=== PATIENT | female | born 1960 | race Caucasian/White ===

== ENCOUNTER → 2016-08-08 | Outpatient (CLI) | payer BC, OTHER ==
[2016-08-08 10:41] LABS: EKG EKG PERFORMED
[2016-08-08 11:23] LABS: Partial Thromboplastin Time 25.3 sec (22.0-30.0); Prothrombin Time 10.3 sec (9.0-12.0)
[2016-08-08 11:26] LABS: Amorphous Sediment,Urine Rare /hpf; Appearance,Urine Cloudy (Clear); Bilirubin,Urine Negative (Negative); Glucose,Urine (UA) Negative (Negative); Ketones,Urine Negative (Negative); Leukocyte Esterase,Urine Moderate (Negative); Mucus,Urine Few /hpf; Nitrite,Urine Negative (Negative); PH, Urine 7.5 (5.0-8.0); Particle Count 16017; Protein,Urine Trace (Negative); RBC,Urine 3 /hpf (0-5); Specific Gravity,Urine 1.016 (1.001-1.035); Squamous Epithelial Cell,Urine 33 /hpf (0-4); UA Billing (MACRO vs. MICRO) MICRO; Urobilinogen,Urine <2.0 mg/dL (<2.0); WBC,Urine 11 /hpf (0-5)
[2016-08-08 11:33] LABS: Basophils % (A) 1 %; CH 29.4; CHCM 33.4; Eosinophils # (A) 0.1 k/uL (0-0.7); Eosinophils % (A) 1 %; HCT 41.9 % (34.0-46.0); HDW 2.73; HGB 14.3 gm/dL (11.4-16.0); Luc # (Auto) 0.15; Luc % (Auto) 3; Lymphocytes # (A) 2.2 k/uL (1.0-4.8); Lymphocytes % (A) 42 %; MCH 30.2 pg (25.0-35.0); MCHC 34.2 g/dL (31.0-37.0); MCV 88.3 fL (80.0-100.0); Monocytes # (A) 0.3 k/uL (0-1.0); Monocytes % (A) 6 %; Neutrophils # (A) 2.5 k/uL (1.3-7.7); Neutrophils % (A) 48 %; RBC 4.74 m/uL (3.80-5.40); RDW 12.9 % (11.5-15.5); WBC 5.2 k/uL (3.8-10.6); WBC (Perox) 5.54
[2016-08-08 11:35] LABS: ALT 35 U/L (9-52); AST 40 U/L (14-36); Alkaline Phosphatase 77 U/L (38-126); Anion Gap 12 mmol/L; Blood Urea Nitrogen 14 mg/dL (7-17); Calcium 10.1 mg/dL (8.4-10.2); Carbon Dioxide 24 mmol/L (22-30); Chloride 105 mmol/L (98-107); Glucose 87 mg/dL (74-99); Non-African American GFR(MDRD) >60 (>60 ml/min/1.73 sqM); Sodium 141 mmol/L (137-145); Total Bilirubin 0.9 mg/dL (0.2-1.3); Total Protein 8.4 g/dL (6.3-8.2)
[2016-08-08 11:37] LABS: Potassium 5.3 mmol/L (3.5-5.1)
== END | disposition home or self-care (01) ==
LOC: LABPAT 10:17
PROVIDERS: ATTEND Orthopaedic Surgery Sports Medicine
DX: Z01.812 Encounter for preprocedural laboratory examination (principal); Z01.810 Encounter for preprocedural cardiovascular examination
CPT/HCPCS: 80053; 81001; 85025; 85610; 85730; 87070; 93005

== ENCOUNTER 2016-08-23 10:02 | Inpatient (IN) | payer BC, OTHER ==
[2016-08-14 10:36] VITALS: BMI 29.5
[2016-09-13] MEDS ORDERED: ceFAZolin 2 GM in SODIUM CHLORIDE 0.9% 100 ML IVPB ONE (05:00)
[2016-09-13] MEDS ORDERED: ONDANSETRON 4 MG/2 ML VIAL IVP ONE ×3 (05:00→06:07)
[2016-09-13] MEDS ORDERED: TRANEXAMIC ACID 1,000 MG in SODIUM CHLORIDE 0.9% 100 ML IVPB ONE ×4 (05:00)
[2016-09-13] MEDS ORDERED: ACETAMINOPHEN TAB 500 MG TAB PO ONE (05:00)
[2016-09-13] MEDS ORDERED: MELOXICAM 7.5 MG TAB PO ONE (05:00)
[2016-09-13] MEDS ORDERED: DEXAMETHASONE SOD PHOSPHATE 10 MG/ML 1 ML VIAL IV ONE ×2 (06:07)
[2016-09-13] MEDS ORDERED: LACTATED RINGERS 1,000 ML IV SCH ×2 (06:07)
[2016-09-13] MEDS ORDERED: MIDAZOLAM 2 MG/2 ML VIAL IV PRN (06:07)
[2016-09-13] MEDS ORDERED: HYDROmorphone 1 MG/ML 1 ML SYRINGE IVP PRN ×5 (06:07→15:19)
[2016-09-13] MEDS ORDERED: LIDOCAINE 1% 20 ML VIAL (10MG/ML) FOR IV START INTRADERMA ONE (13:19)
[2016-09-13] MEDS ORDERED: fentaNYL (PF) 50 MCG/ML 2 ML AMP ONE (14:49)
[2016-09-13] MEDS ORDERED: SODIUM CHLORIDE 0.9% 100 ML BAG ONE (14:49)
[2016-09-13] MEDS ORDERED: MORPHINE SULFATE (PF) 0.3 MG/0.3 ML SYR ONE (14:49)
[2016-09-13] MEDS ORDERED: PROPOFOL 10 MG/ML 20 ML VIAL IV ONE (14:49)
[2016-09-13] MEDS ORDERED: MIDAZOLAM 2 MG/2 ML VIAL ONE (14:49)
[2016-09-13] MEDS ORDERED: TRANEXAMIC ACID 1,000 MG/10 ML VIAL ONE (14:49)
[2016-09-13] MEDS ORDERED: NALOXONE 0.4 MG/ML 1 ML VIAL IV PRN ×2 (15:19→15:23)
[2016-09-13] MEDS ORDERED: Acetaminophen-Codeine 300-30mg TAB PO PRN (15:19)
[2016-09-13] MEDS ORDERED: BISACODYL 10 MG SUPP RECTAL PRN (15:19)
[2016-09-13] MEDS ORDERED: hydrOXYzine PAMOATE 25 MG CAP PO PRN (15:19)
[2016-09-13] MEDS ORDERED: traMADol 50 MG TAB PO PRN (15:19)
[2016-09-13] MEDS ORDERED: ACETAMINOPHEN TAB 325 MG TAB PO PRN (15:19)
[2016-09-13] MEDS ORDERED: DIAZEPAM 5 MG TAB PO PRN (15:19)
[2016-09-13] MEDS ORDERED: MAGNESIUM HYDROXIDE 2,400 MG/10 ML CUP PO PRN (15:19)
[2016-09-13] MEDS ORDERED: NA PHOS,M-B/NA PHOS,DI-BA 133 ML ENEMA RECTAL PRN (15:19)
[2016-09-13] MEDS ORDERED: NALBUPHINE 10 MG/ML AMPUL IV PRN (15:23)
[2016-09-13] MEDS ORDERED: diphenhydrAMINE 50 MG/ML 1 ML VIAL IVP PRN (15:23)
[2016-09-13] MEDS ORDERED: MORPHINE SULFATE 4 MG/ML SYRINGE IVP PRN (15:23)
[2016-09-13] MEDS ORDERED: ceFAZolin 3,000 MG in SODIUM CHLORIDE 0.9% IRRIGATIO 3,000 ML IRRIGATION ONE (15:25)
[2016-09-13] MEDS: ROPIVACAINE 246.25 MG, EPINEPHrine 0.5 MG, KETOROLAC 30 MG, cloNIDine HCL/PF 80 MCG, WA... MISCELLANE ONE ×10 (15:37→16:09)
[2016-09-13] MEDS ORDERED: LACTATED RINGERS 1,000 ML IV ONE (15:38)
--- NOTE | 2016-09-13 18:09 | XR ---
EXAMINATION TYPE: XR KNEE LIMITED LT 2V DATE OF EXAM: 09/13/2016 5:29 PM COMPARISON: NONE HISTORY: Postoperative TECHNIQUE: 2 views FINDINGS: The left TKR appears anatomic in positioning alignment. Postsurgical changes are appreciate d within the soft tissues. The bones and joints and soft tissues are otherwise unremarkable. IMPRESSION: Postoperative examination.
[2016-09-13] MEDS: LACTATED RINGERS 1,000 ML IV SCH ×2 (18:17→23:17)
[2016-09-13] MEDS: ONDANSETRON 4 MG/2 ML VIAL IVP PRN (18:17)
[2016-09-13] MEDS: SENNOSIDES-DOCUSATE SODIUM 1 EACH TAB PO SCH (19:59)
[2016-09-13] MEDS: ASPIRIN 325 MG TAB PO SCH (19:59)
[2016-09-13] MEDS: METOCLOPRAMIDE 5 MG/ML 2 ML VIAL IVP PRN (20:01)
[2016-09-13] MEDS ORDERED: TEMAZEPAM 15 MG CAP PO PRN (21:00)
--- NOTE | 2016-09-13 23:01 | OP ---
DATE OF SERVICE: 09/13/2016 SURGEON: LUIS PATTON MD PARKING ENFORCER: Ross MEDINA PREOPERATIVE DIAGNOSIS: Left knee osteoarthrosis. POSTOPERATIVE DIAGNOSIS: Left knee osteoarthrosis. OPERATION: Left total knee arthroplasty. ANESTHESIA: Spinal with sedation. ESTIMATED BLOOD LOSS: 100 mL TOURNIQUET TIME: 45 minutes @ 250 mmHg. SPECIMENS REMOVED: COMPLICATIONS: None apparent. DRAINS: None. DISPOSITION: Post-Anesthesia Care Unit. OPERATIVE FINDINGS: INDICATIONS: Rocio is a 55-year-old female with long-standing history of left knee pain. History and physical examination were consistent with advanced left knee osteoarthrosis. She has been through significant non-operative management up to this point. Further treatment options were discussed, and she decided to go forward with left total knee arthroplasty. The risks of the procedure were discussed with her in detail. These risks include but are not limited to risk of infection, nerve damage, bleeding, pain, and a risk of deep vein thrombosis which could lead to fatal pulmonary embolism. There is also a risk of loosening of the implant, which could require revision operation. The patient understands these risks. All of her questions were answered to her satisfaction. Appropriate informed consent was obtained. DESCRIPTION OF PROCEDURE: Patient was identified in the preoperative holding area. Surgical site was marked by both the patient and myself. She was given 2 grams of Ancef IV for prophylactic purposes. She was then transferred to the operative suite, where she was placed supine on the operating room table. Spinal anesthetic was administered and dosed per the anesthesia department without apparent complication. Examination under anesthesia was then performed. The patient had full extension. She had 110 degrees of flexion. The medial collateral ligament, lateral collateral ligament and posterior cruciate ligaments were stable. Tourniquet was then placed high on the left upper thigh, well padded in preparation for surgery. Patient's left lower extremity then prepped and draped in the usual sterile fashion. Standard surgical pause was then undertaken to ensure that we were operating on the correct site and that appropriate preoperative antibiotics had been given. All staff in the room were in agreement and we proceeded. The outlines of the patella were marked with a surgical pen. A planned 12 cm vertical incision centered over the patella was marked with a surgical pen. The leg was then exsanguinated with an Esmarch dressing. The knee was then flexed and the tourniquet was inflated to 250 mmHg. The total tourniquet time for the procedure was 45 minutes. Incision was then made with a 10 blade scalpel. Dissection was carried down sharply to the overlying fascia. Great care was taken to minimize the skin flaps. The knee was then exposed using a standard medial parapatellar approach. A small cuff of quadriceps tendon was left for suturing. She was in a mild amount of varus preoperatively. A standard medial release was then made. Superficial medial collateral ligament was dissected off the bone around to the posterior aspect of the proximal tibia. The medial meniscus was then excised as well. The lateral meniscus was also released anteriorly. The leg was then externally rotated. The patella was everted and the knee was flexed. The retractors were then placed to protect the collateral ligaments. I then proceeded to remove the infrapatellar fat pad. This was excised sharply tangentially with the fibers of the patellar tendon. I then proceeded to remove the peripheral osteophytes. This was done with a rongeur. I then proceeded with distal femoral resection. She did have near-full extension. A planned 9 mm resection was then done. The femoral canal was then entered in the midline of the femur approximately 10 mm anterior to the origin of the posterior cruciate ligament. The bertha was then advanced down the center of the femur and placed intramedullary. Based on preoperative radiographs, the angle between the anatomic and mechanical axis of the femur was approximately 4 to 5 degrees. The valgus angle of the disc femoral cutting guide was then set at 4 degrees for the left knee. The distal femoral cutting guide was then advanced over the intramedullary bertha. This was seated firmly against the femur. I then, as mentioned, planned to take 9 mm off the distal femur. The cutting block was then secured onto the femur with pins. The jig was then removed and the distal femoral cut was made through the slot of the block. The pins were then removed and the distal femoral cutting block was removed. The accuracy of the distal femoral cuts was checked with 2 flat bars. I then proceeded with femoral sizing. The posterior referencing sizing guide was held firmly against the resected distal surface of the femur. The posterior condyles were resting on the posterior plane of the guide. The sizing stylus was then placed onto the anterior femur. This was measured as a size 7. I then assessed for femoral rotation. The plan was for 3 degrees of external rotation. Three degrees of external rotation was placed onto the jig. These holes were then marked. I then confirmed the rotation by 3 separate methods. This was done using the epicondylar axis as well as Whitesides line and posterior referencing. It was deemed that the external rotation was proper. I then went forward with placing the femoral cutting block. This was placed over the previously placed pinholes. The rajani wing was then placed onto the anterior slots to ensure that we would not notch the anterior femur with the anterior femoral cut. I then proceeded with the anterior femoral cut. This was flush with the anterior cortex of the femur. Posterior cuts were then made followed by the anterior chamfer cut and then the posterior chamfer cut. The cutting block was then removed. Throughout the resection, the collateral ligaments were protected with retractors. I then placed a trial 7 femur. It fit very nice medial to lateral and fit flush with the distal end of the femur. The drill holes were then made. I then proceeded with the tibial cut. I planned for a cruciate-retaining knee. The guide was placed and set for varus, valgus and for slope. The height was set for approximately 2 mm resection from the medial tibial plateau, which was the lower side. I was happy with the alignment and the amount of resection. The cutting block was then pinned to the proximal tibia. The alignment bertha was removed and the proximal tibia was resected with the reciprocating saw. Again this was done with retractors protecting the collateral ligaments as well as the posterior cruciate ligament. I then proceeded to evaluate the flexion and extension gaps. A 10 mm block was placed. The flexion and extension gaps were equal. I then proceeded with resection of the posterior osteophytes. She had very minimal posterior osteophytes. This was done using curved osteotome. This resected the posterior osteophytes and posterior capsule stripping was also done off the posterior aspect of the femur at this time. The osteophytes were then removed. I then proceeded with resection of the patella. The thickness of the patella was measured using the caliper. Thickness was 22 mm. The thickness of the anticipated patellar dome was taken into account. Resection was then performed and confirmed to be equal in 4 quadrants using a caliper. Approximately 14 mm of bone remained after the resection. A 32 x 8.5 mm standard patellar trial was then placed. The holes were drilled and the trial was then placed. I then proceeded with sizing the tibial plate. A size F tibial plate fit very nicely. I then placed a trial femur, tibial tray and the patellar button. A 10 mm trial tibial insert was also placed. The components fit very nicely. She had full flexion and extension. The extension and flexion gaps were equal and stable to both varus and valgus stress. The patella tracked appropriately. Tibial tray rotation was marked with a Bovie. This was externally rotated properly. I then proceeded with tibial preparation. I first drilled the femoral holes and removed the femoral component. The tibial tray was then set for proper external rotation as well as mediolateral placement onto the tibia. It was then pinned into place. I then proceeded with punching the keel. I then decided to proceed with cementing of all of our components. The knee was thoroughly irrigated with sterile saline solution via pulse lavage. The lateral genicular artery was identified and cauterized. All blood was removed from the bone of the tibia, femur and patella with pulse lavage. I then proceeded with cementing. Two packs of antibiotic bone cement were prepared on the back table by the surgical assistant. I then proceeded with cementing of the tibia first. The cement was impacted in the keel as well as deeply seated into the bone. A second coat of cement was then placed. The tibia was then impacted into place. Excess cement was removed with Alon's and jokers. I then proceeded with cementing the femoral component. The femoral component was also cemented using standard technique. Excess cement was removed. A 10 mm trial insert was placed into the knee. It was brought into full extension with a constant axial load placed until the cement had hardened. The patellar component was then cemented. This was held firmly with a compressive device until the cement had dried. When the cement had dried, the knee was taken out of extension. All excess cement was removed from around the prosthesis. I then trialed the knee with a 10 mm insert. Flexion and extension gaps were appropriate. The knee was stable. It came into full extension. I decided to go forward with a 10 mm cross-linked cruciate-retaining tibial insert. Polyethylene was then placed onto the tibial tray and locked into place. The knee was then reduced. The knee was again further irrigated with sterile saline solution with antibiotic added. The tourniquet was then deflated. The total tourniquet time for the procedure was 45 minutes at 250 mmHg. Final components were Nyaeli Persona size 7 cruciate-retaining femoral component, a size F tibial tray, a 10 mm medial-congruent cruciate-retaining polyethylene insert, and a 32 x 8.5 mm patella. I then proceeded with closure. Again the knee was thoroughly irrigated. The quadriceps tendon and the medial retinaculum were reapproximated with #2 Ethibond suture. The extensor mechanism was then closed with running #2 Quill suture. Subcutaneous tissues were then closed with 2-0 Vicryl interrupted suture. The skin was closed with a running 3-0 Quill suture. Dermabond was applied to the incision. Sterile compressive dressings were then applied. All sponge and needle counts were deemed correct prior to closure. The patient tolerated the procedure without apparent complication. She was transferred to the recovery room in stable condition.
[2016-09-13] MEDS: ceFAZolin 2 GM in SODIUM CHLORIDE 0.9% 100 ML IVPB SCH (23:18)
[2016-09-14] MEDS: ONDANSETRON 4 MG/2 ML VIAL IVP PRN ×2 (01:01→07:45)
[2016-09-14 07:42] LABS: Basophils % (A) 0 %; CH 30.2; Eosinophils % (A) 0 %; HDW 2.83; HGB 11.5 gm/dL (11.4-16.0); Luc # (Auto) 0.13; Luc % (Auto) 1; Lymphocytes # (A) 2.5 k/uL (1.0-4.8); Lymphocytes % (A) 24 %; MCH 30.1 pg (25.0-35.0); MCHC 34.8 g/dL (31.0-37.0); MCV 86.5 fL (80.0-100.0); Mean Platelet Volume 6.8; Monocytes # (A) 0.6 k/uL (0-1.0); Monocytes % (A) 6 %; Neutrophils # (A) 7.3 k/uL (1.3-7.7); Neutrophils % (A) 69 %; RBC 3.81 m/uL (3.80-5.40); RDW 13.1 % (11.5-15.5); WBC 10.5 k/uL (3.8-10.6); WBC (Perox) 10.77
[2016-09-14] MEDS: ceFAZolin 2 GM in SODIUM CHLORIDE 0.9% 100 ML IVPB SCH (07:49)
[2016-09-14] MEDS ORDERED: SCOPOLAMINE 1.5MG/72HR PATCH TRANSDERM STA (07:54)
[2016-09-14] MEDS: METOCLOPRAMIDE 5 MG/ML 2 ML VIAL IVP PRN (08:26)
[2016-09-14] MEDS ORDERED: LISINOPRIL 20 MG TAB PO SCH (09:00)
[2016-09-14] MEDS ORDERED: LISINOPRIL 10 MG TAB PO SCH (10:44)
--- NOTE | 2016-09-14 11:00 | P.PN ---
Progress Note - Text Date:09/14 Time:743 Patient is status post tkr. Patient seen this morning with VAS score of 0.no c/ o of pruritus, c/o nausea/vomiting, comfortable and doing well.
[2016-09-14] MEDS ORDERED: PROMETHAZINE SUPPOSITORY 12.5 MG SUPP RECTAL PRN (11:32)
[2016-09-14] MEDS: GEMFIBROZIL 600 MG TAB PO SCH ×2 (12:51→17:13)
[2016-09-14] MEDS: ASPIRIN 325 MG TAB PO SCH ×2 (12:51→19:17)
[2016-09-14] MEDS: PARoxetine 10 MG TAB PO SCH (12:52)
[2016-09-14] MEDS: MULTIVITAMINS, THERA 1 EACH TAB PO SCH (12:52)
[2016-09-14] MEDS: CHOLECALCIFEROL 1,000 UNIT TAB PO SCH (12:52)
[2016-09-14] MEDS: LACTATED RINGERS 1,000 ML IV SCH ×2 (12:53→19:16)
[2016-09-14] MEDS: Acetaminophen-Codeine 300-30mg TAB PO PRN ×2 (14:01→18:39)
--- NOTE | 2016-09-14 14:34 | P.DS ---
Providers Date of admission: 09/13/16 12:46 Expected date of discharge: 09/14/16 Attending physician: John Ko Consults: 09/13/16 15:19 Consult Physician Routine Consulting Provider: Yonis Frost Consult Reason/Comments: post op medical management Do you want consulting provider notified?: Yes Primary care physician: Stated None - Discharge Diagnosis(es) (1) S/P total knee arthroplasty Patient is 55-year-old female that was admitted to the OR on 09/13/2016 to undergo left total knee arthroplasty. She had failed conservative measures as an outpatient desired proceed with surgical intervention after informed consent. She underwent the above procedure which she tolerated well without complication. Her postoperative hospital course has remained without complication. On day of discharge, she is afebrile, vital signs stable, labs within acceptable ranges, wound is benign, neurovascular status is intact, calf is soft nontender, abdomen soft nontender. She denies new complaints. Her pain is under control, tolerating by mouth meds and diet, voiding without difficulty, positive flatus. Review of systems is day for fever, chills, chest pain, shortness breath, nausea, vomiting, dizziness, headaches, rashes, bleeding , unsteady gait, headaches, slurred speech, calf pain, abdominal pain, numbness , tingling or other. Current Visit: Yes Status: Acute Priority: Medium Procedures: Left total knee arthroplasty Patient Condition at Discharge: Good Plan - Discharge Summary New Discharge Prescriptions: Aspirin 325 mg PO BID #60 tab traMADol HCL [Ultram] 50 mg PO Q4HR PRN #90 tab PRN Reason: Pain Discharge Medication List Cholecalciferol [Vitamin D3] 2,000 unit PO DAILY 08/14/16 [History] Gemfibrozil [Lopid] 600 mg PO AC-BID 08/14/16 [History] Hydrochlorothiazide [Hydrodiuril] 12.5 mg PO DAILY 08/14/16 [History] Moexipril HCl [Univasc] 15 mg PO DAILY 08/14/16 [History] Omeprazole 20 mg PO DAILY 08/14/16 [History] PARoxetine HCL [Paxil] 30 mg PO DAILY 08/14/16 [History] Acetaminophen Tab [Tylenol Tab] 650 mg PO Q4H PRN 09/04/16 [History] Aspirin 325 mg PO BID #60 tab 09/14/16 [Rx] traMADol HCL [Ultram] 50 mg PO Q4HR PRN #90 tab 09/14/16 [Rx] Follow up Appointment(s)/Referral(s): John Ko MD [STAFF PHYSICIAN] - 09/28/16 2:20 pm Activity/Diet/Wound Care/Special Instructions: Keep wound Clean and dry Weight-bear as tolerated Follow up with Dr. Ko in office, [phone] Take meds as directed May shower in 72 hours Discharge Disposition: HOME WITH HOME HEALTH SERVICES
[2016-09-14] MEDS: SENNOSIDES-DOCUSATE SODIUM 1 EACH TAB PO SCH (19:16)
[2016-09-15] MEDS: Acetaminophen-Codeine 300-30mg TAB PO PRN ×2 (07:54→12:20)
[2016-09-15] MEDS: ASPIRIN 325 MG TAB PO SCH (07:55)
[2016-09-15] MEDS: CHOLECALCIFEROL 1,000 UNIT TAB PO SCH (07:55)
[2016-09-15] MEDS: GEMFIBROZIL 600 MG TAB PO SCH (07:55)
[2016-09-15] MEDS: PARoxetine 10 MG TAB PO SCH (07:59)
--- NOTE | 2016-09-15 08:36 | CONS ---
DATE OF CONSULTATION: REASON FOR CONSULTATION: Management of hypertension, ( ) hypertension and other complications. Patient is a very pleasant 55-year-old female admitted to the hospital for left knee arthroplasty. The denied any fever, chills. The patient had nausea, vomiting, abdominal pain, dysuria. REVIEW OF SYSTEMS: CONSTITUTIONAL: No fever, no malaise, no fatigue. HEENT: No recent visual problems or hearing problems. Denied any sore throat. CARDIOVASCULAR: No chest pain, orthopnea, PND, no palpitations, no syncope. PULMONARY: No shortness of breath, no cough, no hemoptysis. GASTROINTESTINAL: No diarrhea, no nausea, no vomiting, no abdominal pain. Normoactive bowel sounds. NEUROLOGICAL: No headaches, no weakness, no numbness. HEMATOLOGICAL: Denies any bleeding or petechiae. GENITOURINARY: Denies any burning micturition, frequency, or urgency. MUSCULOSKELETAL/RHEUMATOLOGICAL: Denies any joint pain, swelling, or any muscle pain. ENDOCRINE: Denies any polyuria or polydipsia. The rest of the 14 point review of systems is negative. Home medications include: 1. Acetaminophen. 2. Cholecalciferol. 3. Gemfibrozil. 4. Hydrochlorothiazide. 5. ( ). 6. Omeprazole. 7. ( ). 8. Tramadol. PAST MEDICAL HISTORY: Hypertension, hyperlipidemia, gastroesophageal reflux disease and. ( ) anxiety disorder and depression. SOCIAL HISTORY: The patient is a smoker, smoked about half a pack per day. Denied any alcohol abuse or any drug abuse. FAMILY HISTORY: ( ). PHYSICAL EXAMINATION: VITAL SIGNS: Temperature 99.4, pulse of 76, respiratory rate 16, blood pressure is 144/74, saturating at 99% on room air. GENERAL: The patient is alert and oriented x3, not in any acute distress. Well developed, well nourished. HEENT: Pupils are round and equally reacting to light. EOMI. No scleral icterus. No conjunctival pallor. Normocephalic, atraumatic. No pharyngeal erythema. No thyromegaly. CARDIOVASCULAR: S1 and S2 present. No murmurs, rubs, or gallops. PULMONARY: Chest is clear to auscultation, no wheezing or crackles. ABDOMEN: Soft, nontender, nondistended, normoactive bowel sounds. No palpable organomegaly. MUSCULOSKELETAL: Defer to orthopedic surgery. EXTREMITIES: No cyanosis, clubbing, or pedal edema. NEUROLOGICAL: Gross neurological examination did not reveal any focal deficits. SKIN: No rashes. LABORATORY DATA: CBC, CMP ( ) basic metabolic profile is not obtained. ASSESSMENT AND PLAN: 1. Status post left knee arthroplasty, pain management and deep venous thrombosis prophylaxis as per primary services. 2. Hypertension will hold off hydrochlorothiazide as the patient is ( ) Lactated Ringer's at this point of time. ( ) hypotension. The patient mya inhibitor dose will be cut down to half as well. Decision regarding continuation of medications will be done by the medical physician who will follow the patient tomorrow. 3. Gastroesophageal reflux disease for which the patient can continue her home medications.
[2016-09-15 09:02] VITALS: BP 156/76; PULSE 72; RESP 15; TEMP 98.3
--- NOTE | 2016-09-15 10:07 | PN ---
DATE OF SERVICE: 09/15/2016 Rocio is postoperative day number 2, status post left total knee arthroplasty. She is doing quite well. She is getting ready to be discharged home this morning. Her pain is well controlled. PHYSICAL EXAMINATION: She is afebrile. Vital signs are stable. The incision is intact with no drainage. She has no undue swelling around the knee. No blistering of the skin. Her calf is soft. She has intact flexion, extension, inversion and eversion of the ankle, intact flexion and extension of all of her toes. She has intact lateral, medial, plantar and first dorsal web space sensation. She has 2+ posterior tibial pulse, brisk capillary refill in all of her digits. IMPRESSION: Postoperative day number 2, status post left total knee arthroplasty. RECOMMENDATIONS: Rocio is doing quite well. She will be discharged home this morning. She is to follow the usual postoperative regimen. All of her questions were answered to her satisfaction.
[2016-09-15] MEDS: MULTIVITAMINS, THERA 1 EACH TAB PO SCH (12:21)
[2016-09-15] MEDS: LACTATED RINGERS 1,000 ML IV SCH (12:23)
== END 2016-09-15 13:48 | disposition home health service (06) | DRG 470 ==
LOC: 2ORMAIN 09-13 12:46 → 3SUR 09-13 16:53
PROVIDERS: ADMIT Orthopaedic Surgery Sports Medicine; ATTEND Orthopaedic Surgery Sports Medicine
PROC: 0SRD0J9 Replacement of Left Knee Joint with Synthetic Substitute, Cemented, Open Approach (ICD-10-PCS; principal; 2016-09-13 15:40)
DX: M17.12 Unilateral primary osteoarthritis, left knee (principal); I10 Essential (primary) hypertension; E78.5 Hyperlipidemia, unspecified; F17.200 Nicotine dependence, unspecified, uncomplicated; K21.9 Gastro-esophageal reflux disease without esophagitis; Z79.899 Other long term (current) drug therapy
CPT/HCPCS: 36415; 80053; 81001; 85025; 85027; 85610; 85730; 88300; 94760

== ENCOUNTER → 2016-09-07 | Outpatient (CLI) | payer BC, OTHER ==
[2016-09-07 11:03] LABS: CH 30.1; CHCM 34.2; HCT 41.9 % (34.0-46.0); HDW 2.62; HGB 14.3 gm/dL (11.4-16.0); MCH 30.3 pg (25.0-35.0); MCHC 34.2 g/dL (31.0-37.0); MCV 88.4 fL (80.0-100.0); Mean Platelet Volume 6.9; RBC 4.74 m/uL (3.80-5.40); RDW 13.1 % (11.5-15.5)
[2016-09-07 11:05] LABS: Partial Thromboplastin Time 24.6 sec (22.0-30.0); Prothrombin Time 10.2 sec (9.0-12.0)
[2016-09-07 11:28] LABS: ALT 34 U/L (9-52); AST 25 U/L (14-36); Alkaline Phosphatase 95 U/L (38-126); Anion Gap 15 mmol/L; Blood Urea Nitrogen 17 mg/dL (7-17); Calcium 10.4 mg/dL (8.4-10.2); Carbon Dioxide 25 mmol/L (22-30); Chloride 103 mmol/L (98-107); Glucose 98 mg/dL (74-99); Non-African American GFR(MDRD) >60 (>60 ml/min/1.73 sqM); Potassium 4.2 mmol/L (3.5-5.1); Sodium 143 mmol/L (137-145); Total Bilirubin 0.8 mg/dL (0.2-1.3); Total Protein 8.6 g/dL (6.3-8.2)
[2016-09-07 11:35] LABS: Appearance,Urine Clear (Clear); Bilirubin,Urine Negative (Negative); Glucose,Urine (UA) Negative (Negative); Ketones,Urine Negative (Negative); Leukocyte Esterase,Urine Moderate (Negative); Mucus,Urine Rare /hpf; Nitrite,Urine Negative (Negative); Particle Count 1946; Protein,Urine Negative (Negative); RBC,Urine 1 /hpf (0-5); Specific Gravity,Urine 1.006 (1.001-1.035); Squamous Epithelial Cell,Urine 3 /hpf (0-4); UA Billing (MACRO vs. MICRO) MICRO; Urobilinogen,Urine <2.0 mg/dL (<2.0); WBC,Urine 7 /hpf (0-5)
== END | disposition home or self-care (01) ==
LOC: LABPAT 10:34
PROVIDERS: ATTEND Orthopaedic Surgery Sports Medicine
DX: Z01.810 Encounter for preprocedural cardiovascular examination (principal); Z01.818 Encounter for other preprocedural examination
CPT/HCPCS: 36415; 80053; 81001; 85027; 85610; 85730